=== PATIENT | male | born 1965 | race Caucasian/White ===

== ENCOUNTER 2022-06-29 12:26 | Inpatient (IN) | payer OTHER ==
[~2022-06-29] VITALS: Ht 182.9 cm; Wt 86.2 kg
[~2022-06-29 12:26] MED LIST: ALBU90OI; CHLGLU.12S; CLOT1TC; FLUN25SP; GABA300; HYDACE5; HYDPAM50; METH5; MOMCAS15; OMEP20ER; PHENY100ER; QUET200; SILD50TA; TRAZ100; WARF5; [UNRECOGNIZED DRUG - MIXTURE]
[2022-06-29 12:57] LABS: Base Excess Venous 1.1 mmol/L; Bicarbonate Venous 24.5 mmol/L (24.0-30.0); PCO2 Venous 51.1 mmHg (38-42); pH Blood Venous 7.33 (7.34-7.37)
[2022-06-29 12:59] LABS: BASOPHILS PERCENT AUTO 1 % (0-2); EOSINOPHILS PERCENT AUTO 12 % (0-6); Hematocrit 44.5 % (37.0-53.0); Hemoglobin 14.9 g/dL (13.5-17.5); IMMATURE GRAN ABSOLUTE AUTO 0.02 K/mm3 (0.00-0.10); IMMATURE GRAN PERCENT AUTO 0 % (0-1); LYMPHOCYTES ABSOLUTE AUTO 1.62 K/mm3 (0.84-5.20); LYMPHOCYTES PERCENT AUTO 20 % (21-46); MONOCYTES ABSOLUTE AUTO 0.67 K/mm3 (0.16-1.47); MONOCYTES PERCENT AUTO 8 % (4-13); Mean Corpuscular HGB 33.2 pg (26.0-34.0); Mean Corpuscular HGB Conc 33.5 g/dL (31.5-36.5); Mean Corpuscular Volume 99 fL (80-100); Mean Platelet Volume 10.2 fL (9.1-12.4); NEUTROPHILS ABSOLUTE AUTO 4.74 K/mm3 (1.96-9.15); NEUTROPHILS PERCENT AUTO 58 % (41-73); Platelet Count 189 K/mm3 (150-400); RDW Coefficient Variation 12.3 % (11.7-14.2); Red Blood Cell Count 4.49 M/mm3 (4.30-5.90); White Blood Cell Count 8.15 K/mm3 (4.00-11.30)
[2022-06-29 13:20] LABS: Albumin, Blood 3.9 g/dL (3.4-5.0); Bilirubin, Total 0.4 mg/dL (0.1-1.0); Bun/Creatinine Ratio 12.4 (12.0-20.0); Calcium, Blood 9.1 mg/dL (8.5-10.1); Creatinine, Blood 1.05 mg/dL (0.60-1.20); Globulin, Blood 3.8 g/dL (2.2-4.0); Potassium, Blood 3.9 mmol/L (3.5-5.5); Total Protein, Blood 7.7 g/dL (6.4-8.2)
[2022-06-29 14:01] LABS: Influenza A, PCR NEGATIVE (NEGATIVE); Influenza B, PCR NEGATIVE (NEGATIVE); Resp Syncytial Virus, PCR NEGATIVE (NEGATIVE); SARS-Cov-2 (COVID-19) PCR, MMC NEGATIVE (NEGATIVE)
[2022-06-29] MEDS ORDERED: Norco 10-325 T1 EACH PO (15:48)
[2022-06-29] MEDS ORDERED: FLUT1DIS5 INH (15:49)
[2022-06-29] MEDS ORDERED: ALBU90OI INH (15:49)
[2022-06-29] MEDS ORDERED: TIOT18 INH (15:49)
[2022-06-29] MEDS ORDERED: Bentyl20 MG PO (15:49)
[2022-06-29] MEDS ORDERED: ALBU2.5V5 NEB (15:50)
[2022-06-29] MEDS ORDERED: SIME80CH PO (15:50)
[2022-06-29] MEDS ORDERED: RIFA550T2 PO (15:50)
[2022-06-29] MEDS ORDERED: NICOTINE GUM2 M1 PO (15:51)
[2022-06-29] MEDS ORDERED: Calcium Carbon500 MG PO (15:51)
[2022-06-29] MEDS ORDERED: WARF5 (15:51)
[2022-06-29 15:53] LABS: Base Excess Venous 0.3 mmol/L; Bicarbonate Venous 23.5 mmol/L (24.0-30.0); PCO2 Venous 50.9 mmHg (38-42); pH Blood Venous 7.32 (7.34-7.37)
[2022-06-29 16:32] LABS: PCO2 Arterial 40.1 mmHg (35-45); PO2 Arterial 61.1 mmHg (80-100); pH Blood Arterial 7.41 (7.35-7.45)
[2022-06-29 17:26] LABS: Prothrombin Time Results 48.5 Sec (9.7-11.5)
[2022-06-29 17:34] LABS: International Normalized Ratio 5.14
--- NOTE | 2022-06-29 18:18 | NUR ---
ADMISSION PT ORIENTED TO ROOM. CALL LIGHT IN REACH. PT BREATHING EASY. COUGHING OCCATIONALY. NO SPUTUM PRODUCED. EXPIRATORY WHEEZES T/O. PT HAPPY AND ASKING FOR DINNER. VS REVIEWED. PT CURRENLTY RESTING IN BED.
--- NOTE | 2022-06-29 21:01 | NUR ---
AWAKE. ALERT. CHEERFUL AFFECT. QUITE HUNGRY, TOLERATED A FEW PLATES OF SNACKS. ASSESSMENT DONE. NOTE BANDAGE OF RIGHT BUTTOCK. AM RN VOICED PT HAD BEEN SEEN BY THE MD EARLIER AND MD PLACED DRESSING ON IT AND WILL CHECK IT AGAIN TOMORROW. NOTE BROWN DISCOLORATION OF SKIN BELOW KNEES, BUT NOT OPRN. USES CANE FOR AMBULATION. ORIENTED TO USE OF CALL LIGHT. CALL LIGHT IN REACH. WILL CONTINUE TO MONITOR
--- NOTE | 2022-06-30 04:03 | NUR ---
MASTER OF CEREMONIES SUMMARY WAS ADMITTED BEFORE SHIFT COMMENCE WITH DX OF COPD EXACERBATION AND COUGH. ALERT AND ORIENTED. PLEASANT AFFECT. COOPERATIVE. WAS QUITE HUNGRY, REQUESTING MULTIPLE SANDWICHES/SNACKS TOLERATED WELL. NOTED CONGESTED COUGH AT SHIFT COMMENCE, BUT DID NOT COUGH UP ANY SPUTUM. RT GAVE TREATMENTS AND PT WAS MEDICATED WITH SOLUMEDROL IV (AND BENADRYL FOR POTENTIAL ALLERGIC REATION). MEDS EFFECTIVE, WAS ABLE TO CALM, COUGHING DECREASED, AND HAS BEEN RESTING QUIETLY WITH FEW INTERRUPTIONS SINCE. CALL LIGHT IN REACH. WILL CONTINUE TO MONITOR. VSS
[2022-06-30 07:34] LABS: BASOPHILS ABSOLUTE AUTO 0.01 K/mm3 (0.00-0.23); BASOPHILS PERCENT AUTO 0 % (0-2); EOSINOPHILS PERCENT AUTO 0 % (0-6); Hematocrit 43.9 % (37.0-53.0); Hemoglobin 14.8 g/dL (13.5-17.5); IMMATURE GRAN ABSOLUTE AUTO 0.06 K/mm3 (0.00-0.10); IMMATURE GRAN PERCENT AUTO 1 % (0-1); LYMPHOCYTES ABSOLUTE AUTO 0.66 K/mm3 (0.84-5.20); LYMPHOCYTES PERCENT AUTO 5 % (21-46); MONOCYTES PERCENT AUTO 2 % (4-13); Mean Corpuscular HGB Conc 33.7 g/dL (31.5-36.5); Mean Corpuscular Volume 98 fL (80-100); Mean Platelet Volume 10.6 fL (9.1-12.4); NEUTROPHILS ABSOLUTE AUTO 11.69 K/mm3 (1.96-9.15); NEUTROPHILS PERCENT AUTO 93 % (41-73); Platelet Count 198 K/mm3 (150-400); RDW Coefficient Variation 12.2 % (11.7-14.2); RDW Standard Deviation 44.8 fL (35.1-46.3); Red Blood Cell Count 4.48 M/mm3 (4.30-5.90); White Blood Cell Count 12.62 K/mm3 (4.00-11.30)
[2022-06-30 07:57] LABS: Bun/Creatinine Ratio 17.6 (12.0-20.0); Calcium, Blood 9.6 mg/dL (8.5-10.1); Creatinine, Blood 1.08 mg/dL (0.60-1.20); Potassium, Blood 3.9 mmol/L (3.5-5.5)
[2022-06-30 08:00] LABS: Prothrombin Time Results 77.9 Sec (9.7-11.5)
[2022-06-30 08:14] LABS: International Normalized Ratio 8.54
--- NOTE | 2022-06-30 11:37 | NUR ---
BACK PAIN PT REPORTING BACK PAIN AND REQUESTING HOME VICODIN ORDER. HOME MEDS RECONCILED. DR. BRAVO ORDERED TO RESUME HOME VIDOCIN ORDER.
--- NOTE | 2022-06-30 14:41 | NUR ---
PHYSICIAN CONTACT PT EXPERIENCING CHRONIC DIARRHEA, NOTED TO BE FROTHY. 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 NEW ORDERS FOR CONTINUATION OF HOME MED.
--- NOTE | 2022-06-30 16:46 | NUR ---
SHIFT SUMMARY PT A&OX4, COOPERATIVE WITH CARE. HR SLIGHTLY TACHY IN THE 100'S AND O2 SATTING IN LOW 90'S THROUGHOUT THE DAY. LUNGS DIMISHED IN THE BASES, INSPIRATORY WHEEZES HEARD UNTIL PATIENT COUGHED. LBM TODAY. STARTED HOME MED RIFAXIMIN D/T PT EXPERIENCING CHRONIC DIARRHEA R/T SHORT GUT SYNDROME. APPETITE AND HYDRATION NOTED TO BE GOOD. PATIENT SHOWERED THIS AFTERNOON. PAIN LEVEL 4-5/10 THROUGHOUT THE DAY, TREATED WITH NORCO. PT REPORTS ACCEPTABLE LEVEL OF PAIN IS 6/10. PT REPORTS FEELING "FUZZY" IN HIS HEAD. INR LEVEL 8.54 THIS AM, ORDERED DOSE OF VIT K GIVEN. PRODUCTIVE COUGH WITH THICK YELLOW SPUTUM NOTED THROUGHOUT THE DAY. PT STATES HE HAS NOTICED SMALL STREAKS OF BLOOD IN SPUTUM, NOT VISUALIZED BY THIS NURSE. REPORTED TO FRANK HENSON.
--- NOTE | 2022-06-30 19:24 | NUR ---
AWAKE. CHEERFUL. NO C/O PAIN. RESPS EVEN. CALL LIGHT IN REACH
--- NOTE | 2022-07-01 00:09 | NUR ---
PROFESSOR OF FOOD BIOCHEMISTRY SUMMARY INTERMITTENT COUGHING, SOME EXP WHEEZES. VSS. DENIED PAIN WHEN ASKED. OTHERWISE ASYMPTOMATIC. RECEVING RT TX'S AND MEDS RE BREATHING - SEE MAR FOR DETAILS. PAIN MED X 1. OTHERWISE HAS BEEEN RESTING QUIETLY WITH FEW INTERRUPTIONS. LOOSE STOOL CONTINUES. CALL LIGHT IN ERACH. WILL CONTINUE TO MONITOR
[2022-07-01 09:34] LABS: International Normalized Ratio 2.21
[2022-07-01] MEDS ORDERED: PRED20 PO (11:26)
[2022-07-01] MEDS ORDERED: IPRAT-ALBUT 0.5-3 ML INH (11:26)
--- NOTE | 2022-07-01 14:25 | NUR ---
DISCHARGE PATIENT [facility]. DISCHARGE INSTRUCTIONS EXPLAINED TO PATIENT. PATIENT STATED UNDERSTANDING. PACKET SENT WITH PATIENT. BELONGINGS SENT WITH PATIENT. IV REMOVED WITHOUT DIFFICULTY. PATIENT TO CALL AND SCHEDULE FOLLOW UP APPOINTMENT. PATIENT FROM [facility]. [facility] [place], PATIENT INSTRUCTED TO PICK THEM UP IN [place] BEFORE GOING HOME. PATIENT AGREEABLE.
== END 2022-07-01 13:35 | disposition home or self-care (01) | DRG 189 ==
LOC: ER 12:26 → MEDS 12:27
PROVIDERS: Student in an Organized Health Care Education/Training Program; ADMIT Internal Medicine
DX: J96.01 Acute respiratory failure with hypoxia (principal); J44.1 Chronic obstructive pulmonary disease with (acute) exacerbation; J96.02 Acute respiratory failure with hypercapnia; Z23 Encounter for immunization; Z20.822 Contact with and (suspected) exposure to COVID-19; F25.9 Schizoaffective disorder, unspecified; F32.A Depression, unspecified; F43.10 Post-traumatic stress disorder, unspecified; G40.909 Epilepsy, unspecified, not intractable, without status epilepticus; K21.9 Gastro-esophageal reflux disease without esophagitis; I10 Essential (primary) hypertension; E78.5 Hyperlipidemia, unspecified; G89.4 Chronic pain syndrome; R79.0 Abnormal level of blood mineral; Z86.711 Personal history of pulmonary embolism; Z86.718 Personal history of other venous thrombosis and embolism; Z87.891 Personal history of nicotine dependence; Z88.5 Allergy status to narcotic agent; Z79.01 Long term (current) use of anticoagulants; Z79.51 Long term (current) use of inhaled steroids; Z79.899 Other long term (current) drug therapy
CPT/HCPCS: 0241U; 36415; 36600; 71045; 80048; 80053; 82803; 85025; 85610; 90686; 93005; 93010; 94640; 94644; 94645; 94664; 94760; 96375; 96376; A9270; G0008; G0378; J1200; J2405; J2930